=== PATIENT | male | born 1950 | race Caucasian/White ===

== ENCOUNTER 2023-02-24 00:25 | Emergency (ER) | payer MEDICARE, BC ==
[~2023-02-24] VITALS: Ht 185.4 cm; Wt 87.4 kg
[2023-02-24 00:49] VITALS: BP 131/74; PULSE 92; TEMP 98; O2SAT 96
[2023-02-24] MEDS ORDERED: HYDROcodone/acetaminophen 10/325mg tab PO ONE (02:35)
[2023-02-24] MEDS ORDERED: proparacaine 0.5% ophthalmic drops 15ml RIGHTEYE ONE (02:35)
[2023-02-24] MEDS ORDERED: acetaminophen 325mg tablet PO ONE (02:35)
[2023-02-24] MEDS ORDERED: ketorolac trometh inj. 60 MG/2 ML VIAL IM ONE (02:35)
[2023-02-24 02:48] VITALS: RESP 18
== END 2023-02-24 03:05 | disposition home or self-care (01) ==
LOC: ER 00:26
DX: H57.11 Ocular pain, right eye (principal); R51.9 Headache, unspecified; H40.89 Other specified glaucoma
CPT/HCPCS: 96372; 99284; J1885